=== PATIENT | male | born 1960 | race Caucasian/White ===

== ENCOUNTER 2017-10-23 07:31 | Emergency (ER) | payer OTHER, BC ==
[~2017-10-23] VITALS: Ht 175.3 cm; Wt 113.4 kg
[~2017-10-23 07:31] MED LIST: ASCO500 PO; ASPI81CH PO; CENTRUM SILVER1 EAC2 PO; ERGO400 PO; FURO20; FURO20 PO; IBUP100S PO; METO100ER PO; OLME20; OLME20 PO; POT CHLORIDE TAB 8ME; POTA10T PO; Potassium Chlo10 ME1; Toprol Xl50 MG PO
[2017-10-23 08:06] LABS: Hematocrit 42.9 % (37.0-53.0); Mean Corpuscular HGB 30.5 pg (26.0-34.0); Mean Corpuscular Volume 87 fL (80-100); Platelet Count 276 K/mm3 (150-400); RDW Coefficient Variation 12.6 % (11.7-14.2); RDW Standard Deviation 40.4 fL (35.1-46.3); Red Blood Cell Count 4.91 M/mm3 (4.30-5.90); White Blood Cell Count 10.22 K/mm3 (4.00-11.30)
[2017-10-23 08:28] LABS: Alanine Aminotransfer (ALT/SGP 49 U/L (12-78); Albumin/Globulin Ratio 1.1 (0.8-1.8); Alk Phos 69 U/L (50-136); Anion Gap 10 mmol/L (6-16); Aspartate Aminotrans (AST/SGOT 37 U/L (12-37); Bilirubin, Total 0.4 mg/dL (0.1-1.0); Blood Urea Nitrogen 15 mg/dL (8-24); Bun/Creatinine Ratio 16.6 (12.0-20.0); CO2, Blood 23 mmol/L (21-32); Calcium, Blood 8.6 mg/dL (8.5-10.1); Chloride, Blood 107 mmol/L (98-108); Globulin, Blood 3.8 g/dL (2.2-4.0); Glomerular Filtration Rate >60 (60-); Glucose, Blood 126 mg/dL (70-99); Potassium, Blood 3.8 mmol/L (3.5-5.5); Sodium, Blood 140 mmol/L (136-145); Total Protein, Blood 7.8 g/dL (6.4-8.2)
[2017-10-23 08:38] LABS: BAND PERCENT MAN 1 % (0-8); BASOPHILS PERCENT MAN 1 % (0-2); EOSINOPHILS PERCENT MAN 1 % (0-6); LYMPHOCYTES ABSOLUTE MAN 0.71 K/mm3 (0.84-5.20); LYMPHOCYTES PERCENT MAN 7 % (21-46); MONOCYTES PERCENT MAN 4 % (4-13); NEUTROPHILS ABSOLUTE MAN 8.89 K/mm3 (1.96-9.15); SEG NEUTROPHILS PERCENT MAN 86 % (41-73); TOTAL CELLS COUNTED 100
[2017-10-23] MEDS ORDERED: Zofran4 MG PO (09:50)
[2017-10-23] MEDS ORDERED: Norco 10-325 T1 EACH PO (09:50)
[2017-10-23] MEDS ORDERED: IBUP600 PO (09:50)
[2018-06-01] MEDS ORDERED: QC ANTI-ITCH CR28 GM TOP (21:09)
[2018-06-01] MEDS ORDERED: Permethrin60 GM TOP (21:09)
== END 2017-10-23 10:17 | disposition home or self-care (01) ==
LOC: ER 07:31
PROVIDERS: Emergency Medicine
DX: S22.31XA Fracture of one rib, right side, initial encounter for closed fracture (principal); S43.004A Unspecified dislocation of right shoulder joint, initial encounter; S01.01XA Laceration without foreign body of scalp, initial encounter; S30.1XXA Contusion of abdominal wall, initial encounter; S80.02XA Contusion of left knee, initial encounter; Z23 Encounter for immunization; I10 Essential (primary) hypertension; Z79.899 Other long term (current) drug therapy; Z87.891 Personal history of nicotine dependence; V67.5XXA Driver of heavy transport vehicle injured in collision with fixed or stationary object in traffic accident, initial encounter
CPT/HCPCS: 12032; 36415; 70450; 71260; 72125; 73562-LT; 74177; 80053; 85025; 90471; 90714; 99284; Q9967

== ENCOUNTER 2020-06-14 08:26 | Day surgery (SDC) | payer OTHER ==
[~2020-06-14] VITALS: Ht 175.3 cm; Wt 119.8 kg
[~2020-06-14 08:26] MED LIST changes: +Aspir 8181 MG PO; +FUROSEMIDE20 MG PO; +IBUP600 PO; +Klor-Con 1010 MEQ PO; +METO50ER PO; +Norco 10-325 T1 EACH PO; +Percocet 7.5-31 EACH PO; +Permethrin60 GM TOP; +QC ANTI-ITCH CR28 GM TOP; -Toprol Xl50 MG PO; +Zofran4 MG PO
== END 2020-06-14 10:26 | disposition home or self-care (01) ==
LOC: ORSCSDS 08:26
PROVIDERS: Surgery
PROC: 0DBK8ZX Excision of Ascending Colon, Via Natural or Artificial Opening Endoscopic, Diagnostic (ICD-10-PCS; principal; 2020-06-14 09:45)
PROC: 0DBC8ZX Excision of Ileocecal Valve, Via Natural or Artificial Opening Endoscopic, Diagnostic (ICD-10-PCS; principal; 2020-06-14 09:45)
DX: Z12.11 Encounter for screening for malignant neoplasm of colon (principal); Z80.0 Family history of malignant neoplasm of digestive organs; D12.0 Benign neoplasm of cecum; D12.2 Benign neoplasm of ascending colon; I10 Essential (primary) hypertension; E66.01 Morbid (severe) obesity due to excess calories; Z68.39 Body mass index [BMI] 39.0-39.9, adult; Z87.891 Personal history of nicotine dependence; Z79.899 Other long term (current) drug therapy; Z79.82 Long term (current) use of aspirin
CPT/HCPCS: 88305; J2704; J7120

== ENCOUNTER → 2022-09-19 | Outpatient (CLI) | payer OTHER | END | disposition home or self-care (01) | LOC: LAB SHORT 14:34 | DX: H01.006 Unspecified blepharitis left eye, unspecified eyelid (principal) | CPT/HCPCS: 87070; 87077; 87186; 87205 ==

== ENCOUNTER → 2024-01-10 | Outpatient (CLI) | payer BC | LOC: LAB 08:10 → LAB SHORT 08:10 | DX: R82.81 Pyuria (principal) | CPT/HCPCS: 87086 ==

== ENCOUNTER → 2025-05-09 | Outpatient (CLI) | payer SELFPAY | END | disposition home or self-care (01) | LOC: LAB SHORT 07:52 → LAB 07:52 | DX: N40.2 Nodular prostate without lower urinary tract symptoms (principal) | CPT/HCPCS: 88305; 88342 ==

== ENCOUNTER 2025-07-31 09:02 | Day surgery (SDC) | payer OTHER ==
[2025-07-31] VITALS (16 sets, daily range): BP systolic 103–164; BP diastolic 74–102
[~2025-07-31] VITALS: Ht 175.3 cm; Wt 111.7 kg
[~2025-07-31 09:02] MED LIST changes: +CATAPRES0.1 MG PO; +SILD50TA PO
--- NOTE | 2025-07-31 10:19 | NUR ---
07/31/25 1019 Matthew Ocampo CONFIRMED AND REVIEWED H&P, MEDCICATIONS, ALLERGIES, MEDICAL HISTORY, RESPIRATORY HISTORY, VITAL SIGNS, 3-LEAD EKG, CONSENTS, AND PHYSICIAN ORDERS. PATIENT CONFIRMS NPO STATUS AND AGREES WITH SCHEDULED PROCEDURE. MONITOR INTACT WITH CONTINUOUS PULSE OXIMETRY, CAPNOGRAPHY, 3-LEAD EKG, INTERMITTENT BP. SUPPLEMENTAL O2 TO BE TITRATED THROUGHOUT PROCEDURE TO MAINTAIN O2 SATURATION ABOVE 90%. PATIENT DETERMINED TO BE ASA APPROPRIATE FOR PROPOFOL SEDATION PRIOR TO START OF PROCEDURE BY DR. RING
--- NOTE | 2025-07-31 11:24 | NUR ---
TO STEP POST PROCEDURE. DENIES PAIN, NAUSEA, SOB. VERBALIZED UNDERSTANDING OF DC INSTRUCTION. CAR PO WELL. DC'D IV INTACT. DC'D VIA WC TO PRIVATE CAR WITH [employer]ER.
== END 2025-07-31 11:26 | disposition home or self-care (01) ==
LOC: ORSCMMR 09:02 → ORD 10:30 → ORSCMMR 10:30
PROVIDERS: Surgery
PROC: 0DBH8ZX Excision of Cecum, Via Natural or Artificial Opening Endoscopic, Diagnostic (ICD-10-PCS; principal; 2025-07-31 10:30)
PROC: 0DBK8ZX Excision of Ascending Colon, Via Natural or Artificial Opening Endoscopic, Diagnostic (ICD-10-PCS; principal; 2025-07-31 10:30)
DX: Z12.11 Encounter for screening for malignant neoplasm of colon (principal); Z86.0101 Personal history of adenomatous and serrated colon polyps; Z80.0 Family history of malignant neoplasm of digestive organs; D12.2 Benign neoplasm of ascending colon; D12.0 Benign neoplasm of cecum; C61 Malignant neoplasm of prostate; I10 Essential (primary) hypertension; Z79.899 Other long term (current) drug therapy
CPT/HCPCS: 88305; J2704; J7120